=== PATIENT | male | born 1960 | race Caucasian/White ===

== ENCOUNTER → 2016-05-19 | Outpatient (CLI) | payer OTHER ==
[~2016-05-19] MED LIST: ATOR10TA82 PO; B-CO-25 PO; BACL10TA PO; DULO60CA44 PO; ECHICAP PO; GABA1CAP4 PO; HYDR-5688 PO; IBUP1CAP9 PO; MULT-506 PO; NAPR-1169 PO; NRN600 PO; TIZA4CAP PO; TRAZ50TA35 PO
[2016-05-19 17:09] LABS: BASO % 0.5 %; BASO ABS # 0.04 K/uL (0-0.2); COMPLETE YES; EOS % 3.5 %; HEMATOCRIT 42.3 % (42-52); IG% 0.2 %; LYMPH % 31.8 %; LYMPH ABS # 2.75 K/uL (1.2-3.4); MEAN CELL VOLUME 90.4 fL (80-100); MEAN CORPUSCULAR HEMOGLOBIN 32.1 pg (25-34); MEAN CORPUSCULAR HGB CONC 35.5 g/dl (32-36); MEAN PLATELET VOLUME 9.5 fL (7.4-10.4); MONO % 6.4 %; NEUT % 57.6 %; PLATELET COUNT 340 K/uL (130-400); RED BLOOD COUNT 4.68 M/uL (4.7-6.1); WHITE BLOOD COUNT 8.64 K/uL (4.8-10.8)
[2016-05-19 17:36] LABS: BENZODIAZEPINE, URINE NEG (NEG); COCAINE,URINE NEG (NEG); PHENCYCLIDINE, URINE NEG (NEG)
[2016-05-19 17:37] LABS: ALKALINE PHOSPHATASE 137 U/L (45-117); ALT/SGPT 29 U/L (12-78); BLOOD UREA NITROGEN 12 mg/dl (7-18); BUN/CREATININE RATIO 12.1 (10-20); CALCIUM 8.5 mg/dl (8.5-10.1); CARBON DIOXIDE 29 mmol/L (21-32); CHLORIDE 103 mmol/L (98-107); CHOLESTEROL 235 mg/dl (0-200); CHOLESTEROL/HDL RATIO 4.2; GLUCOSE 103 mg/dl (70-99); HDL CHOLESTEROL 56 mg/dl; POTASSIUM 4.1 mmol/L (3.5-5.1); SODIUM 137 mmol/L (136-145); TRIGLYCERIDES 496 mg/dl (0-150)
[2016-05-19 17:45] LABS: AST/SGOT 21 U/L (15-37)
[2016-05-20 06:33] LABS: ESTIMATED AVERAGE GLUCOSE 126 mg/dl; HA1C FLAG Normal (Normal)
[2016-05-23 05:28] LABS: COD UR NEGATIVE NG/ML (CUTOFF=50); HYDROCOD UR 1760 NG/ML (CUTOFF=50); HYDROMOR UR 117 NG/ML (CUTOFF=50); MORPHINE UR NEGATIVE NG/ML (CUTOFF=50); NORHYDROCODONE CONF UR 1930 NG/ML (CUTOFF=50); OXYMORPH UR NEGATIVE NG/ML (CUTOFF=50)
--- NOTE | 2016-05-25 13:41 | CODING QUERY MEDICAL NECESSITY ---
CQSUPPORTING DIAGNOSIS NEEDED A supporting diagnosis is required for the test/procedure performed on this patient in order for us to be reimbursed by the patient's insurance. Please provide a supporting diagnosis for the following test/procedure listed below next to the test name along with your signature. *If there is no additional diagnosis for this patient that would support the following test/procedure please document that below next to the test/procedure. Test(s)/Procedure(s) that require a supporting diagnosis: DOS 05/19/16 GLYCATED HEMOGLOBIN CONTROLLED SUBSTANCE Provider Signature: Date: Thank you Jazzy Ponce Health Information Management Once completed, please kindly fax back to [phone] For questions please call [phone]
== END | disposition home or self-care (01) ==
LOC: C.LAB 16:28
PROVIDERS: ATTEND Family Medicine
DX: R73.03 Prediabetes (principal); Z51.81 Encounter for therapeutic drug level monitoring

== ENCOUNTER → 2016-06-26 | Outpatient (CLI) | payer OTHER ==
[2016-06-26 09:54] LABS: CHOLESTEROL/HDL RATIO 4.8
== END | disposition home or self-care (01) ==
LOC: C.LAB 09:02
PROVIDERS: ATTEND Nurse Practitioner Adult Health
DX: E78.1 Pure hyperglyceridemia (principal)

== ENCOUNTER → 2016-08-17 | Outpatient (CLI) | payer OTHER ==
[~2016-08-17] MED LIST changes: -ATOR10TA82 PO; +ATOR10TA88 PO
[2016-08-17 11:15] LABS: CHOLESTEROL/HDL RATIO 3.3
== END | disposition home or self-care (01) ==
LOC: C.LAB 09:40
PROVIDERS: ATTEND Nurse Practitioner Adult Health
DX: E78.5 Hyperlipidemia, unspecified (principal)

== ENCOUNTER 2016-09-17 22:59 | Emergency (ER) | payer OTHER ==
[~2016-09-17] VITALS: Ht 172.7 cm; Wt 77.4 kg
[~2016-09-17 22:59] MED LIST changes: -ATOR10TA88 PO; -TIZA4CAP PO; -TRAZ50TA35 PO
[2016-09-17 23:11] VITALS: TEMP 36.8; Ht 172.7 cm; Wt 77.4 kg
[2016-09-17] MEDS ORDERED: ACETAMINOPHEN 500 MG TAB PO STA (23:27)
[2016-09-17] MEDS ORDERED: TRAZ50TA35 PO (23:54)
[2016-09-17] MEDS ORDERED: TIZA4CAP PO (23:54)
[2016-09-17] MEDS ORDERED: ATOR10TA88 PO (23:56)
--- NOTE | 2016-09-18 03:54 | EMERGENCY ROOM VISIT NOTE ---
History First contact with patient: 23:25 Chief Complaint: HEAD INJURY (MINOR) Stated Complaint: IMPACT TO HEAD,ALMOST PASSED OUT,LIGHTHEADED History of Present Illness The patient is a 55 year old male who presents to the Emergency Room with complaints of headache, lightheadedness and dizziness with nausea after accident hitting his head on the cabinet a few hours ago. Current headache 5 out of 10. Patient denies loss of consciousness, vision problems, facial pain, cough, congestion, fever, chills, sinus pain or congestion, neck pain, back pain , chest pain, dyspnea, abdominal pain, weakness, localized weakness, balance problems. No alcohol or drugs today. Tetanus is current. Review of Systems See HPI for pertinent positives & negatives. A total of 10 systems reviewed and were otherwise negative. Past Medical/Surgical History Medical Problems: (1) Diverticulosis Colon (W/O Ment Of Hemorrhage) (2) Personal History Of Urinary Calculi (3) Unsp Gastritis & Gastroduodenitis W/O Mentn Hemorg Social History Problems: (1) Tobacco Use Disorder Social History Smoking Status: Current Every Day Smoker Alcohol Use: none Drug Use: none Marital Status: in relationship Occupation Status: employed Current/Historical Medications Scheduled Atorvastatin (Lipitor), 1 TAB PO HS Duloxetine Hcl (Cymbalta), 60 MG PO QAM Gabapentin (Gabapentin), 600 MG PO QID Tizanidine (Zanaflex), 4 MG PO TID Trazodone Hcl (Trazodone), 50 MG PO HS Scheduled PRN Ibuprofen (Ibuprofen), 600 MG PO Q6 PRN for Pain Naproxen (Naprosyn), 500 MG PO BID PRN for Pain Physical Exam Vital Signs Date Time Temp Pulse Resp B/P (MAP) Pulse Ox O2 Delivery O2 Flow Rate FiO2 09/18/16 02:14 66 18 151/83 96 Room Air 09/17/16 23:11 36.8 94 18 128/87 95 Room Air 09/17/16 23:11 18 95 Physical Exam VITALS: Vitals are noted on the nurse's note and reviewed by myself. Vital signs stable. GENERAL: Pleasant male, in no acute distress, nondiaphoretic, well-developed well-nourished. SKIN: Superficial abrasion to the top of the scalp The rest of the skin was without rashes, erythema, edema, or bruising. There is no tenting of the skin. Capillary reflex less than 2 seconds. HEAD: Normocephalic atraumatic. EARS: External auditory canals clear, tympanic membranes pearly pope without erythema or effusion bilaterally. EYES: Pupils equal round and reactive to light and accommodation. Conjunctivae without injection, sclerae without icterus. Extraocular movements intact. NOSE: Patent, turbinates without inflammation or discharge. No sinus tenderness. MOUTH: Mucous membranes moist. Pharynx without erythema or exudate. Uvula midline. Airway patent. Tongue does not deviate. NECK: Supple without nuchal rigidity. No lymphadenopathy. No thyromegaly. Cervical spine is nontender. No JVD. HEART: Regular rate and rhythm without murmurs gallops or rubs. LUNGS: Clear to auscultation bilaterally without wheezes, rales or rhonchi. No dullness to percussion. No retractions or accessory muscle use. ABDOMEN: Positive bowel sounds x 4. Normal tympanic percussion. Soft, nontender, without masses or organomegaly. More sign negative. No guarding or rebound tenderness. MUSCULOSKELETAL: No muscle atrophy, erythema, or edema noted. NEURO: Patient was alert and oriented to person place and time. Normal sensation to light and sharp touch. No focal neurological deficits. Cranial nerves II-12 grossly intact. No prior drift. Cerebellar exam intact. Medical Decision & Procedures Medications Administered Medications (Trade) Dose Ordered Sig/Cele Route Start Time Stop Time Status Last Admin Dose Admin Acetaminophen (Tylenol Tab) 1,000 mg NOW STAT PO 09/17/16 23:27 09/17/16 23:29 DC 09/18/16 00:09 1,000 MG ED Course Prior records/ancillary studies reviewed. Triage Nursing notes reviewed. The patient's history was concerning for traumatic head injury Differential diagnosis: Etiologies such as concussion, contusion, fracture, subdural hematoma, epidural hematoma, intraparenchymal hemorrhage, as well as other traumatic pathologies were entertained. Physical examination findings: As above. ER treatment provided: P.o. Tylenol On reassessment the patient felt better. Diagnostics interpreted by me: Imaging studies: Head CT negative for intracranial bleed. Sinus CT concerning for sinus retention cyst versus polyps with mucosal thickening per stat radiology Patient has no sinus symptoms. He was advised follow-up with ENT for this. It appears the patient has a head injury. Incidental findings on the sinuses on head CT So sinus CT was ordered. Patient had no sinus symptoms on exam. He is advised follow-up ENT for the sinus issues and family care in a few days. Patient was counseled on head injury signs and symptoms and verbalized understanding of this. He is advised if symptoms persist to follow-up with the concussion clinic here in town or here in the ER sooner for headache, fevers, vomiting, lethargy, worsening signs or symptoms or as needed. She was neurovascularly and neurologically intact. He was well-appearing. He was ambulating without difficulties. He was discharged home in stable condition. By the evaluation outlined above emergent etiologies such as fracture, subdural hematoma, epidural hematoma, intraparenchymal hemorrhage, as well as others were deemed relatively unlikely. The pt informed about the findings as listed above. All questions were answered and pleased with the treatment. Return instructions were outlined and the patient was discharged in stable condition. Case reviewed with my attending Referral: The patient was referred back to their primary care physician and ENT for follow -up in 2 to 3 days for a recheck of the current condition. Medical Decision As above Medication Reconcilliation Current Medication List: was personally reviewed by me Blood Pressure Screening Patient's blood pressure: Elevated blood pressure Blood pressure disposition: Elevated BP felt to be situational Impression Primary Impression: Closed head injury Additional Impression: Scalp abrasion Departure Information Dispostion Home / Self-Care Condition GOOD Referrals Sussy Ryder C.R.N.PIrene (PCP) Miah Shannon MD Forms HOME CARE DOCUMENTATION FORM, IMPORTANT VISIT INFORMATION Patient Instructions [facility], ED Head Injury Closed Additional Instructions Read head injury handout and return for any symptoms. Tylenol 1000 mg as needed for pain (Maximum 3000 mg Tylenol in 24 hr period). Avoid alcohol and contact sports/activities for one week and follow up with family doctor prior to returning to these activities if still symptomatic. Ice and elevate head. If your symptoms persist more than a week then follow up with the concussion clinic. Call [phone]. Return to ER sooner for headache, fevers, confusion, worsening signs or symptoms or as needed. Follow-up ENT within the week for your sinus problems seen on CT. Problem Qualifiers Primary Impression: Closed head injury Encounter type: initial encounter Qualified Codes: S09.90XA - Unspecified injury of head, initial encounter
[2016-09-18 04:10] VITALS: BP 145/95; PULSE 65; O2SAT 98
--- NOTE | 2016-09-18 06:39 | DIAGNOSTIC IMAGING REPORT ---
HEAD CT NONCONTRAST CT DOSE: 614.27 mGy.cm HISTORY: head injury TECHNIQUE: Multiaxial CT images of the head were performed without the use of intravenous contrast. Automated exposure control was utilized for this study. A dose lowering technique was utilized adhering to the principles of ALARA. Comparison: None. Findings: Retention cyst within the right maxillary sinus. Mucosal thickening and a small fluid within the left maxillary sinus. The mastoid air cells are clear. The calvarium and skull base are intact. The ventricles and sulci are within normal limits. There is no mass, hematoma, midline shift, or acute infarct. Impression: No acute intracranial abnormality. Sinus disease as described above. Electronically signed by: Gustavo Dye M.D. 09/18/2016 6:38 AM Dictated Date/Time: 09/18/2016 6:36 AM
--- NOTE | 2016-09-18 06:42 | DIAGNOSTIC IMAGING REPORT ---
SINUS CT CT DOSE: 497.91 mGy.cm HISTORY: Abnormal head CT. Facial pain. TECHNIQUE: Multiaxial CT images of the paranasal sinuses were performed and reformatted in the coronal plane without the use of contrast. A dose lowering technique was utilized adhering to the principles of ALARA. COMPARISON: Head CT 09/18/2016. FINDINGS: A 2.3 cm retention cyst within the right maxillary sinus. Mucosal thickening and a small fluid level within the left maxillary sinus. A few opacified right mastoid air cells. The left mastoid air cells are clear. Opacification of the bilateral ethmoid infundibula. Mild right nasal septal deviation. The orbits are unremarkable. IMPRESSION: Acute on chronic sinusitis within the left maxillary sinus with a retention cyst within the right maxillary sinus. Electronically signed by: Gustavo Dye M.D. 09/18/2016 6:41 AM Dictated Date/Time: 09/18/2016 6:38 AM
== END 2016-09-18 04:11 | disposition home or self-care (01) ==
LOC: C.EDB 23:01 → C.EDA 09-18 04:11
DX: S00.01XA Abrasion of scalp, initial encounter (principal); W22.8XXA Striking against or struck by other objects, initial encounter; Z87.442 Personal history of urinary calculi; K29.70 Gastritis, unspecified, without bleeding; K29.90 Gastroduodenitis, unspecified, without bleeding; K57.30 Diverticulosis of large intestine without perforation or abscess without bleeding; F17.210 Nicotine dependence, cigarettes, uncomplicated; Z79.899 Other long term (current) drug therapy

== ENCOUNTER → 2017-06-27 | Outpatient (CLI) | payer OTHER ==
[~2017-06-27] MED LIST changes: +ATOR10TA82 PO; -B-CO-25 PO; -BACL10TA PO; -ECHICAP PO; -GABA1CAP4 PO; -HYDR-5688 PO; -MULT-506 PO; +TIZA4CAP PO; +TRAZ50TA35 PO
--- NOTE | 2017-06-27 17:10 | DIAGNOSTIC IMAGING REPORT ---
HEAD WITHOUT CONTRAST (CT) CLINICAL HISTORY: 56 years-old Male with FLUCTUATING MENTATION STATUS. Acutely altered mental status TECHNIQUE: Multiple axial CT images of the head were obtained without contrast. A dose lowering technique was utilized adhering to the principles of ALARA. CT DOSE: 614.27 mGy.cm COMPARISON: CT head 09/18/2016. FINDINGS: No acute intracranial hemorrhage, midline shift, hydrocephalus or abnormal extra-axial collections. There is a large area of low-attenuation involving the right parietal and occipital lobes measuring up to 3.5 cm with blurring of the pope-white interface and minimal adjacent sulcal effacement. Note is made of a magna cisterna magna. The calvarium is intact. Moderate polypoid mucosal thickening about the right maxillary sinus. Soft tissues and orbits are unremarkable. IMPRESSION: Focal area of low-attenuation involving the right parietal and occipital lobes with blurring of the pope-white interface and mild sulcal effacement suggest acute or subacute infarction with cytotoxic edema. No hemorrhage or midline shift. This could be further evaluated with MRI. The above report was generated using voice recognition software. It may contain grammatical, syntax or spelling errors. Electronically signed by: Souleymane Lopez M.D. 06/27/2017 5:09 PM Dictated Date/Time: 06/27/2017 5:03 PM
== END | disposition home or self-care (01) ==
LOC: C.CTS 16:43
PROVIDERS: ATTEND Registered Nurse
DX: R41.82 Altered mental status, unspecified (principal); Z87.820 Personal history of traumatic brain injury

== ENCOUNTER 2024-02-22 14:21 | Inpatient (IN) ==
[2024-02-22] MEDS: cefTRIAXone SODIUM 2,000 MG/50 ML BAG IV STA (16:40)
[2024-02-22] MEDS: metroNIDAZOLE 500 MG/100 ML BAG IV STA (16:40)
[2024-02-22 17:23] LABS: INR 1.1 (0.9-1.1); Partial Thromboplastin Time 27 Seconds (21-31); Prothrombin Time 11.9 Seconds (9.0-12.0)
[2024-02-22 17:28] LABS: Alanine Aminotransferase 61 U/L (7-52); Albumin Level 2.8 gm/dl (3.4-5.0); Alkaline Phosphatase 359 U/L (34-104); Anion Gap 13 (3-11); Aspartate Aminotransferase 43 U/L (13-39); BUN Creatinine Ratio 22.1 (10-20); Bilirubin Direct 0.2 mg/dl (0-0.2); Bilirubin,Total 0.4 mg/dl (0.2-1.0); Blood Urea Nitrogen 30 mg/dl (6-23); Calcium 10.4 mg/dl (8.6-10.3); Carbon Dioxide 28 mmol/L (21-32); Chloride 86 mmol/L (98-107); Glucose 514 mg/dl (70-99(Fasting)); Magnesium 1.8 mg/dl (1.7-2.4); Potassium 3.6 mmol/L (3.5-5.1); Sodium 127 mmol/L (136-145); Troponin I High Sensitivity 16.5 pg/ml (0-20)
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
[2024-02-22 17:33] LABS: Basophils # (auto) 0.06 K/uL (0.00-0.20); Basophils % (auto) 0.2 %; Eosinophils # (auto) 0.02 K/uL (0.00-0.50); Eosinophils % (auto) 0.1 %; Hemoglobin 12.1 g/dl (14.0-18.0); Immature Granulocytes % (auto) 1.3 %; Lymphocytes # (auto) 1.31 K/uL (1.20-3.40); Lymphocytes % (auto) 4.2 %; Mean Corpuscular Hemoglobin 26.4 pg (25.0-34.0); Mean Corpuscular Hgb Conc 32.7 g/dL (32.0-36.0); Mean Corpuscular Volume 80.8 fL (80.0-100.0); Mean Platelet Volume 8.7 fL (9.4-12.4); Monocytes # (auto) 1.03 K/uL (0.11-0.59); Monocytes % (auto) 3.3 %; Neutrophils # (auto) 28.63 K/uL (1.40-6.50); Neutrophils % (auto) 90.9 %; Platelet Count 692 K/uL (130-400); RDW Coefficient of Variation 18.6 % (11.5-14.5); RDW Standard Deviation 54.5 fL (36.4-46.3); Red Blood Count 4.58 M/uL (4.70-6.10); White Blood Count 31.45 K/ul (4.8-10.8)
[2024-02-22] MEDS: LIDOCAINE 5% 1 PATCH TD SCH ×2 (17:46→21:16)
[2024-02-22] MEDS: SODIUM CHLORIDE 0.9% 1,000 ML IV SCH (17:47)
--- NOTE | 2024-02-22 18:04 | XRay Report ---
Clinical History: Sepsis Technique: 3 frontal views of the chest were obtained Findings: There is extensive alveolar consolidation in the right mid and lower lung. There is a suspected small moderate right pleural effusion. The heart size is within normal limits. No left pleural effusion or pneumothorax is seen. There is a calcified left upper lobe nodule, likely a benign granuloma. There is right paratracheal prominence There are old healed left third fractures. There is a cervical fusion Impression: 1. Extensive right lung pneumonia 2. Right pleural effusion 3. Right paratracheal prominence that could be due to adenopathy but is indeterminate in nature. A follow-up contrast-enhanced chest CT may be prudent Electronically signed by Hossein Tinajero 02-22-2024 6:04 PM
--- NOTE | 2024-02-22 18:05 | Pulmonary Consultation ---
Date of Consultation February 22, 2024 Assessment & Plan (1) Empyema, right: 14 Hungarian pigtail catheter placed on the right. Brown-colored fluid removed from the right pleural space and chest tube attached to 20 cm of water continuous suction. Patient will be transferred to [place] for further thoracic intervention such as VATS. Will hold on mist 2 protocol given the anticipation of patient needing VATS in the very near future for source control. Discussed the case personally with Dr. Olvera of thoracic surgery who is excepting the patient under the hospitalist service in [place]. Hold on anticoagulation and maintain n.p.o. status. (2) Lactic acidosis: Secondary to sepsis from extensive right-sided pneumonia and empyema. (3) Sepsis: Sepsis from pneumonia and empyema. Recommend changing antibiotics to vancomycin and Zosyn. (4) COPD exacerbation: Will hold on prednisone as his symptoms are mild, but start the patient on bronchodilators and ICS nebulizer. Plan Discussed care with thoracic surgeon in [place], overnight ICU [facility], bedside nurse in the ER, ER physician and hospitalist at bedside. History of Present Illness Reason for Consultation: Empyema History of Present Illness 63-year-old male with extensive smoking history since the age of 16 who presented to the ER due to the recommendation of radiology. He had a low-dose CT chest for screening follow-up which revealed an extensive right-sided empyema and right upper lobe infiltrate. Patient notes he has had ongoing pleurisy and cough for several weeks. He has mild dyspnea at baseline. He does not use any inhalers and has not seen pulmonary medicine as an outpatient. Labs are concerning for a white count of 31,000. Chest x-ray in the ER revealed extensive right-sided infiltrate and pleural effusion. Patient received Rocephin and azithromycin in the ER. Allergies Allergy/AdvReac Type Severity Reaction Status Date / Time amoxicillin [From Augmentin] Allergy Intermediate Hives Verified 01/10/23 09:26 clavulanic acid Allergy Intermediate Hives Verified 01/10/23 09:26 [From Augmentin] Home Medications Medication Instructions Recorded Confirmed Type ascorbic acid (vitamin C) 500 mg 500 mg PO QAM 06/18/20 02/22/24 History tablet (Vitamin C) atorvastatin 20 mg tablet 20 mg PO QPM 06/18/20 02/22/24 History baclofen 20 mg tablet 20 mg PO HS PRN Muscle Spasm 06/18/20 02/22/24 History makfdiuyxxib-jwteligm-wkliql tablet 1 tab PO QAM 06/18/20 02/22/24 History topiramate 50 mg tablet 50 mg PO UD 02/22/24 02/22/24 History Patient History Medical History Osteoarthritis Anemia Poor historian Surgical History Bilateral varicoceles REPAIRED [place] teeth removed History of tonsillectomy H/O eye surgery REPAIR FROM DOG BITE H/O blepharoplasty "EYELID SURGERY" Family History Mother Family history of diabetes mellitus Father Family history of diabetes mellitus Sister Family hx of colon cancer Other No family history of adverse response to anesthesia Social History Smoking Status: Current every day smoker Tobacco Type: Cigarettes Second Hand Exposure: No; Do You Dip or Chew Tobacco: No; Hx Alcohol Use: No Preferred Language: [employer] Required: No Current Living Situation: Alone Feels Safe at Home: Yes Assistive Devices: Glasses Review of Systems Review of Systems: All systems reviewed & are unremarkable except as noted in HPI & below Physical Exam Physical Exam: Constitutional: Patient appears to be of their stated age. Patient is in no apparent distress. Thin appearing male. Eyes: Pupils are equal round and reactive to light. Conjunctivae are normal. Anicteric sclera. Ears nose, mouth and throat: Mallampati class 1. Normal posterior oropharynx. Uvula is midline. Extremely poor dentition with multiple loose teeth. Neck: Trachea is midline. Visual inspection is normal. Respiratory: Right pleural rub with diminishment on the right and crackles. Diffuse wheezing. Cardiovascular: Regular rate and rhythm. No murmurs. No edema. Gastrointestinal: Normal bowel sounds, soft, nontender and nondistended. No hepatosplenomegaly noted. Musculoskeletal: No cyanosis. Patient is able to move all extremities. Strength is 5 out of 5 in the upper and lower extremities. Skin: No rashes, warm dry and intact. Neurologic: No obvious focal neurological deficits seen. Psychiatric: Alert and oriented x3 with a euthymic affect. Results & Data Results & Data Vital Signs (Past 12 Hours) Vital Signs Temp Pulse Pulse Resp BP BP Pulse Ox 02/22/24 17:04 83 20 130/75 96 02/22/24 16:37 89 20 136/80 97 02/22/24 16:35 92 H 20 96 02/22/24 16:35 90 20 136/80 96 02/22/24 14:25 36.3 C L 109 H 20 115/63 93 O2 Del Method 02/22/24 17:04 Room Air 02/22/24 16:37 Room Air 02/22/24 16:35 Room Air 02/22/24 16:35 Room Air 02/22/24 14:25 Room Air PG Care Time/CCT Total # of Minutes Spent Total Time Spent with Patient: Total time spent is greater than 50% in coordination of care (as documented) at patient's floor/unit and/or counseling patient: Coding Level of Care Code 76524 INT INP/OBS CARE 3/75MIN Diagnoses Empyema, right J86.9 Lactic acidosis E87.20 Sepsis A41.9 COPD exacerbation J44.1
[2024-02-22] MEDS ORDERED: VANCOMYCIN CONSULT ACTIVE PRN (18:24)
[2024-02-22] MEDS: NovoLIN-R INSULIN PER UNIT CHARGE SC STA ×2 (18:34→21:17)
[2024-02-22] MEDS ORDERED: VANCOMYCIN HCL 1,250 MG in SODIUM CHLORIDE 0.9% 250 ML IV ONE (18:45)
[2024-02-22] MEDS: HYDROmorphone INJ 0.5 MG/0.5 ML SYR IV STA (18:53)
[2024-02-22] MEDS: VANCOMYCIN HCL 1,500 MG in SODIUM CHLORIDE 0.9% 500 ML IV ONE (19:47)
[2024-02-22] MEDS: ACETAMINOPHEN 1,000 MG/100 ML VIAL IV STA (19:48)
--- NOTE | 2024-02-22 19:55 | Procedure Note ---
Procedure Note Date of Service February 22, 2024 PIGTAIL CATHETER PLACEMENT NOTE: Procedure: Pigtail Catheter Chest Tube Placement Indication: Right empyema Anesthesia: 8ml Lidocaine 1% Written consent was obtained and placed on the chart. Timeout was done prior to the procedure. Prior to procedure, chest x-ray films were reviewed by myself and demonstrated a large loculated right pleural effusion. A time-out was completed verifying correct patient, procedure, site, positioning, and implant(s) or special equipment if applicable. Utilizing bedside ultrasound, chest wall was evaluated for location for optimal chest tube placement. Location between the fifth and sixth ribs were marked on the skin using gentle pressure. The right sided chest wall was prepped with chlorhexidine and draped in the typical sterile fashion. 15 mL of 1% Lidocaine without epinephrine was used to anesthetize the skin down to the dorsal surface of the fifth rib. Brown colored fluid return confirmed entry into the pleural space. Lidocaine was injected into the pleural space for increased anesthetization. Introducer needle on syringe was inserted in perpendicular fashion taking care to ride just above the dorsal surface of the fifth rib. Entry into the pleural space was heralded by brown-colored fluid return into the syringe while under gentle aspiration. Guide wire was advanced into the pleural space without resistance and the introducer needle was subsequently removed. Scalpel was used to make small incision of the superficial tissue, parallel to the direction of the rib anatomy. Dilator was advanced uneventfully over the guide wire into the pleural space. 14 Sinhala Pigtail Catheter was inserted into the pleural space. Inner introducer and guide wire were removed. Drain was immediately connected to pre-prepared MANJU pleur-evac system. Pigtail was sutured securely in place and sterile dressing was applied. Chest tube was placed to -20 cmH2O suction. Patient tolerated procedure well. Blood Loss: Minimal Complications: None Post procedure Chest X-ray was ordered and reviewed by myself which demo nstrated adequate placement. [facility] [place] Procedure Codes (Charges) Pulmonary/Thoracic Procedure 1: Pulmonary and Thoracic: 19729 Tube thoracostomy Procedure 2: Pulmonary and Thoracic: 02439 US, Chest, real time with imaging documentation Coding CPT Codes Pulmonary/Thoracic - Pulmonary and Thoracic: 58877 Tube thoracostomy ([id number]) Pulmonary/Thoracic - Pulmonary and Thoracic: 68266 US, Chest, real time with imaging documentation ([id number]) Additional Codes Date of Service ([facility].SURGERY)
--- NOTE | 2024-02-22 20:43 | XRay Report ---
Exam(s): XR CXR 1 VIEW EXAM: XR Chest, 1 View CLINICAL HISTORY: Reason for exam: eval placement of pigtail catheter- r/o pthx. TECHNIQUE: Frontal view of the chest. COMPARISON: 02/22/2024. IMPRESSION: Right-sided pleural pigtail in place. No visible pneumothorax. Pleural thickening versus small right pleural effusion. Airspace opacities in the right lung. Electronically signed by: Jona Dailey MD 02/22/24 20:42 PM
[2024-02-22] MEDS: MEROPENEM 500 MG in SYRINGE 0 ML IV ONE (21:17)
--- NOTE | 2024-02-22 23:02 | Emergency Department Note ---
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 TABLET IN THE EVENING WITH A FULL GLASS OF WATER Referrals Referrals: Wero Vega MD [Primary Care Provider] -
[2024-02-22 23:33] LABS: Appearance Pleural Fluid Turbid; Color Pleural Fluid Brown; RBC Pleural Fluid Auto 270000 /uL; Source Pleural Fluid Right Lung; WBC Pleural Fluid Auto 419830 /uL
[2024-02-23] MEDS ORDERED: DEXTROSE 50% 50 ML SYRINGE IV PRN (00:04)
[2024-02-23] MEDS ORDERED: CARBOHYDRATES FOR HYPOGLYCEMIA PO PRN (00:04)
[2024-02-23] MEDS ORDERED: ACETAMINOPHEN 325 MG TAB PO PRN (00:04)
[2024-02-23] MEDS ORDERED: MELATONIN 3 MG TAB PO PRN (00:04)
[2024-02-23] MEDS ORDERED: GLUCOSE 40% GEL 15 GM TUBE PO PRN (00:04)
[2024-02-23] MEDS ORDERED: POLYETHYLENE (MIRALAX) 17 GM PACK PO PRN (00:04)
[2024-02-23] MEDS ORDERED: GLUCAGON FOR INJ 1 MG VIAL SQ PRN (00:04)
[2024-02-23] MEDS ORDERED: ONDANSETRON INJ 2 MG/ML 2 ML VIAL IV PRN (00:04)
[2024-02-23] MEDS ORDERED: BACLOFEN 20 MG TAB PO PRN (00:04)
[2024-02-23] MEDS ORDERED: FAMOTIDINE 20 MG TAB PO PRN (00:04)
[2024-02-23] MEDS ORDERED: PHARMACY GLYCEMIC MGMT CONSULT PRN (00:04)
[2024-02-23] MEDS ORDERED: GLUCOSE 10 TAB/TUBE PO PRN (00:04)
[2024-02-23] MEDS ORDERED: ALBUT/IPRATROP 3MG/0.5MG NEB 3 ML VIAL NEB PRN (00:21)
[2024-02-23] MEDS: oxyCODONE HCL IR 5 MG TAB (IMMEDIATE RELEASE) PO PRN (00:40)
[2024-02-23] MEDS: SODIUM CHLORIDE 0.9% 1,000 ML IV SCH ×2 (00:44→13:43)
[2024-02-23] MEDS: LANTUS PER UNIT CHARGE SQ SCH (00:59)
[2024-02-23] MEDS: INSULIN ASPART PER UNIT CHARGE SC SCH (01:00)
[2024-02-23] MEDS: MEROPENEM 500 MG in SYRINGE 0 ML IV SCH (04:35)
[2024-02-23 07:14] LABS: Estimated Average Glucose 197 mg/dl; Hemoglobin A1C 8.5 % (4.5-5.6)
[2024-02-23] MEDS: FORMOTEROL 20 MCG/2 ML VIAL NEB SCH (07:18)
[2024-02-23] MEDS: BUDESONIDE 0.25 MG/2 ML VIAL (PULMICORT) NEB SCH (07:18)
--- NOTE | 2024-02-23 08:20 | XRay Report ---
EXAM: XR chest 1V portable CLINICAL HISTORY: EMPYEMA LDS. TECHNIQUE: An X-ray image of the chest was obtained in AP projection. COMPARISON: Prior X-ray study dated 02/22/2024. FINDINGS: Pulmonary Parenchyma: Inserted right chest tube is seen. Mild regression in right middle lung zone opacity with surrounding diffuse ground glass opacity and alveolar densities seen with obscured right costophrenic angle. Right paratracheal radio-opacity is seen as well. Left upper lobe calcified granuloma. No evidence of left consolidation, collapse, or focal opacities. No evidence of left pleural effusion or pleural thickening. Heart and Mediastinum: Heart size and shape are normal. No mediastinal widening or masses. No hilar or mediastinal lymphadenopathy. Bony Thorax: Bony thorax appears intact without fractures or deformities. Soft Tissues: Soft tissues overlying the chest wall are unremarkable. IMPRESSION: 1. Inserted right chest tube is seen (new). 2. Mild regression in right middle lung zone opacity with surrounding diffuse ground glass opacities seen as well as mild right pleural effusion. 3. Right paratracheal radio-opacity is seen as well (stable). 4. Left upper lobe calcified granuloma (stable). Electronically signed by Memo Alegre 02-23-2024 08:20 AM
[2024-02-23 08:22] LABS: BUN Creatinine Ratio 21.7 (10-20); Calcium 9.6 mg/dl (8.6-10.3); Creatinine Clr Calc Pharmacy 56.7 ml/min; Potassium 3.9 mmol/L (3.5-5.1)
[2024-02-23 08:34] LABS: Hematocrit (blood only) 31.8 % (42.0-52.0); Hemoglobin 10.3 g/dl (14.0-18.0); Mean Corpuscular Hemoglobin 26.5 pg (25.0-34.0); Mean Corpuscular Hgb Conc 32.4 g/dL (32.0-36.0); Mean Corpuscular Volume 81.7 fL (80.0-100.0); Mean Platelet Volume 8.4 fL (9.4-12.4); Platelet Count 560 K/uL (130-400); RDW Coefficient of Variation 18.6 % (11.5-14.5); RDW Standard Deviation 55.7 fL (36.4-46.3); Red Blood Count 3.89 M/uL (4.70-6.10)
[2024-02-23 08:38] LABS: Basophils # (auto) 0.13 K/uL (0.00-0.20); Basophils % (auto) 0.3 %; Echinocytes 1+; Eosinophils # (auto) 0.05 K/uL (0.00-0.50); Eosinophils % (auto) 0.1 %; Immature Granulocytes # (auto) 0.48 K/uL (0.01-0.20); Immature Granulocytes % (auto) 1.3 %; Lymphocytes # (auto) 1.07 K/uL (1.20-3.40); Lymphocytes % (auto) 2.8 %; Monocytes # (auto) 0.63 K/uL (0.11-0.59); Monocytes % (auto) 1.6 %; Neutrophils # (auto) 35.94 K/uL (1.40-6.50); Neutrophils % (auto) 93.9 %; Polychromasia 1+
[2024-02-23] MEDS: ADVANCED PROBIOTIC 625 MG CAPSULE PO SCH (09:12)
[2024-02-23] MEDS: ASCORBIC ACID 500 MG TAB PO SCH (09:12)
[2024-02-23] MEDS: TOPIRAMATE 50 MG TAB PO SCH (09:12)
[2024-02-23] MEDS: CEROVITE ADV FORMULA TAB PO SCH (09:12)
--- NOTE | 2024-02-23 11:06 | Pulmonology Progress Note ---
Date of Service February 23, 2024 Assessment & Plan (1) Empyema, right: Plan: 14 Vietnamese pigtail catheter placed on the right. Brown-colored fluid removed from the right pleural space and chest tube attached to 20 cm of water continuous suction. Patient will be transferred to [place] for further thoracic intervention such as VATS. Will hold on mist 2 protocol given the anticipation of patient needing VATS in the very near future for source control. Discussed the case personally with Dr. Olvera of thoracic surgery who is excepting the patient under the hospitalist service in [place]. Hold on anticoagulation and maintain n.p.o. status. (2) Lactic acidosis: Plan: Secondary to sepsis from extensive right-sided pneumonia and empyema. (3) Sepsis: Plan: Sepsis from pneumonia and empyema. Recommend changing antibiotics to vancomycin and Zosyn. (4) COPD exacerbation: Plan: Will hold on prednisone as his symptoms are mild, but start the patient on bronchodilators and ICS nebulizer. Plan Discussed care with thoracic surgeon in [place], overnight ICU [facility], bedside nurse in the ER, ER physician and hospitalist at bedside. Admission and Anticipated Discharge Date Admission Date: February 22, 2024 Review of Systems Review of Systems: A complete 10 point review of systems was reviewed with the patient with pertinent positives and negatives as per history of present illness. All else were negative. Physical Exam Physical Exam: VITAL SIGNS Vital signs and nursing notes were reviewed. GENERAL []-year-old [] appearing [] stated age who is in no acute distress. Communicates well with provider and answers questions appropriately. SKIN Without rashes or lesions. NOSE Midline and without cyanosis. No epistaxis or purulent drainage noted. MOUTH/OROPHARYNX Without perioral cyanosis. Buccal mucosa pink and moist and without leukoplakia or thrush. NECK Neck with FROM. Supple to palpation. [] lymphadenopathy noted. LUNGS Chest wall evaluation demonstrates [] chest wall A:P diameter. Auscultation reveals []. CARDIAC RRR with S1/S2. No murmur, rubs, or gallops appreciated. ABDOMEN Abdominal inspection demonstrates []. BS normoactive all four quadrants. No tenderness, palpable masses, or ascites noted. EXTREMITIES Nail clubbing [] present. [] peripheral cyanosis. [] pretibial edema present. +3/5 radial palpated throughout. PSYCH A&Ox3 and cooperates fully with examiner. Pt is very pleasant and interacts well with examiner. Results & Data Results & Data Vital Signs (Past 12 Hours) Vital Signs Temp Pulse Pulse Resp BP BP Pulse Ox 02/23/24 10:54 36.2 C L 80 18 115/70 90 02/23/24 08:09 36.2 C L 90 18 102/58 L 93 02/23/24 07:23 02/23/24 07:19 88 16 95 02/23/24 03:59 36.9 C 76 18 146/79 H 96 02/23/24 02:35 02/23/24 00:00 69 02/23/24 00:00 02/22/24 23:54 36.3 C L 83 18 144/71 H 93 02/22/24 23:45 84 19 129/69 94 02/22/24 23:30 79 20 129/69 93 02/22/24 23:15 81 19 132/62 19 L O2 Del Method 02/23/24 10:54 Room Air 02/23/24 08:09 Room Air 02/23/24 07:23 Room Air 02/23/24 07:19 Room Air 02/23/24 03:59 Room Air 02/23/24 02:35 Room Air 02/23/24 00:00 02/23/24 00:00 Room Air 02/22/24 23:54 Room Air 02/22/24 23:45 Room Air 02/22/24 23:30 Room Air 02/22/24 23:15 Room Air PG Care Time/CCT Total # of Minutes Spent Total Time Spent with Patient: Total time spent is greater than 50% in coordination of care (as documented) at patient's floor/unit and/or counseling patient: Coding Diagnoses Empyema, right J86.9 Lactic acidosis E87.20 Sepsis A41.9 COPD exacerbation J44.1
[2024-02-23] MEDS: VANCOMYCIN HCL 1,250 MG in SODIUM CHLORIDE 0.9% 250 ML IV SCH (11:40)
--- NOTE | 2024-02-23 12:19 | Hospitalist Progress Note ---
Date of Service February 23, 2024 Assessment & Plan (1) Empyema lung: Plan: -CT Chest: in EPIC: . New large loculated right pleural collections with air and fluid concerning for empyemas. Two claims customer service representative collections are measured above.2. New ill-defined right upper lobe pulmonary consolidations, likely infection. The previously seen pulmonary consolidations in the right middle lobe have decreased, however there is increased right middle lobe volume loss.3. Several mediastinal lymph nodes have mildly increased in size, may be reactive. Attention on the follow-up chest CT suggested. -pulmonary placed chest tube in ED, awaiting transfer to [facility] for VATS with cardiothoracic surgery -no air leak notable on my exam today -culture data shows gram positive cocci and gram negatives as well Plan: -f/u culture results -appreciate pulmonary recs -monitor respiratory status -continue broad spectrum abx -maintenance fluids ordered, NPO for intervention (2) Sepsis: Plan: -noted on admission, 2/2 lung empyema Plan: -continue maintenance fluids -continue broad spectrum abx -monitor fluid status (3) Lactic acidosis: Plan: -improved (4) Hyperglycemia: Plan: -glycemic control with lantus and SSI (5) CKD stage 3 due to type 2 diabetes mellitus: Plan: -trend creatinine (6) TBI (traumatic brain injury): 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, patient has partial blindness and significant light sensitivity (7) Tobacco use: Plan: -likely contributer to need for VATS Plan Feeding/fluids: NPO Analgesia: oxycodone Sedation: na Thromboprophylaxis: SCDs Head up position: na Ulcer prophylaxis: na Glycemic control: insulin protocol Spontaneous breathing trial: na Bowel care: miralax Indwelling catheter removal: none Deescalation of antibiotics: broad spectrum until cultures arrive I spent a total of 55 minutes coordinating, documenting, and providing care for this patient excluding time spent in the performance of separately billed services. Admission and Anticipated Discharge Date Admission Date: February 22, 2024 Subjective 63-year-old male past medical history of lower back pain who presents for shortness of breath and atypical chest imaging. Noted outpatient to have significant pleural effusions in his right lung and was told to come to the ED. Chest tube was placed by pulmonary and patient is awaiting transfer to [facility] for further workup and VATS. Patient is in pain today. He states that he would like to transfer soon as possible. His shortness of breath feels improved and he is pleased with the amount of fluid that is coming out of chest tube. Review of Systems Review of Systems: CONSTITUTIONAL: fatigue, pain EYES: Patient denies any visual symptoms. EARS, NOSE, AND THROAT: No difficulties with hearing. No symptoms of rhinitis or sore throat. CARDIOVASCULAR: Patient denies chest pains, palpitations, orthopnea and paroxysmal nocturnal dyspnea. RESPIRATORY: No dyspnea on exertion, no wheezing or cough. GI: No nausea, vomiting, diarrhea, constipation, abdominal pain, hematochezia or melena. : No urinary hesitancy or dribbling. No nocturia or urinary frequency. No abnormal urethral discharge. MUSCULOSKELETAL: No myalgias or arthralgias. NEUROLOGIC: No chronic headaches, no seizures. Patient denies numbness, tingling or weakness. PSYCHIATRIC: Patient denies problems with mood disturbance. No problems with anxiety. ENDOCRINE: No excessive urination or excessive thirst. DERMATOLOGIC: Patient denies any rashes or skin changes. Physical Exam Physical Exam: Gen: A&O 3 NAD HEENT: NCAT, EOMI, not icteric. External ears normal. No rhinorrhea. Moist mucous membranes. Neck: Supple, full range of motion, no observable masses, No meningeal sign. Lungs: No Respiratory distress. Noted right sided chest tube CV: RRR, no edema. Abdomen: Soft, nondistended, No rebound tenderness. MSK: No joint swelling, no redness. Skin: No rashes, petechiae, lesions. Normal color per patient. Neuro: Normal Gait, Grossly intact. Psych: Appropriate for situation. Results & Data Results & Data Vital Signs (Past 12 Hours) Vital Signs Temp Pulse Resp BP Pulse Ox O2 Del Method 02/23/24 10:54 36.2 C L 80 18 115/70 90 Room Air 02/23/24 08:09 36.2 C L 90 18 102/58 L 93 Room Air 02/23/24 07:23 Room Air 02/23/24 07:19 88 16 95 Room Air 02/23/24 03:59 36.9 C 76 18 146/79 H 96 Room Air 02/23/24 02:35 Room Air Laboratory Results Laboratory Results WBC 38.30 K/ul (4.8-10.8) H* 02/23/24 07:42 RBC 3.89 M/uL (4.70-6.10) L 02/23/24 07:42 Hgb 10.3 g/dl (14.0-18.0) L 02/23/24 07:42 Hct 31.8 % (42.0-52.0) L 02/23/24 07:42 MCV 81.7 fL (80.0-100.0) 02/23/24 07:42 MCH 26.5 pg (25.0-34.0) 02/23/24 07:42 MCHC 32.4 g/dL (32.0-36.0) 02/23/24 07:42 RDW Std Deviation 55.7 fL (36.4-46.3) H 02/23/24 07:42 RDW Coeff of Whitney 18.6 % (11.5-14.5) H 02/23/24 07:42 Plt Count 560 K/uL (130-400) H 02/23/24 07:42 MPV 8.4 fL (9.4-12.4) L 02/23/24 07:42 Immature Gran % (Auto) 1.3 % 02/23/24 07:42 Neut % (Auto) 93.9 % 02/23/24 07:42 Lymph % (Auto) 2.8 % 02/23/24 07:42 Traill % (Auto) 1.6 % 02/23/24 07:42 Eos % (Auto) 0.1 % 02/23/24 07:42 Baso % (Auto) 0.3 % 02/23/24 07:42 Neut # (Auto) 35.94 K/uL (1.40-6.50) H 02/23/24 07:42 Lymph # (Auto) 1.07 K/uL (1.20-3.40) L 02/23/24 07:42 Traill # (Auto) 0.63 K/uL (0.11-0.59) H 02/23/24 07:42 Eos # (Auto) 0.05 K/uL (0.00-0.50) 02/23/24 07:42 Baso # (Auto) 0.13 K/uL (0.00-0.20) 02/23/24 07:42 Immature Gran # (Auto) 0.48 K/uL (0.01-0.20) H 02/23/24 07:42 Polychromasia 1+ 02/23/24 07:42 Echinocytes 1+ 02/23/24 07:42 PT 11.9 Seconds (9.0-12.0) 02/22/24 16:36 INR 1.1 (0.9-1.1) 02/22/24 16:36 APTT 27 Seconds (21-31) 02/22/24 16:36 PTT Ratio 1.0 02/22/24 16:36 Sodium 137 mmol/L (136-145) D 02/23/24 07:42 Potassium 3.9 mmol/L (3.5-5.1) 02/23/24 07:42 Chloride 102 mmol/L (98-107) 02/23/24 07:42 Carbon Dioxide 29 mmol/L (21-32) 02/23/24 07:42 Anion Gap 6 (3-11) 02/23/24 07:42 BUN 25 mg/dl (6-23) H 02/23/24 07:42 Creatinine 1.15 mg/dl (0.6-1.4) 02/23/24 07:42 Est Cr Clr Drug Dosing 56.7 ml/min 02/23/24 07:42 eGFR 71.51 02/23/24 07:42 BUN/Creatinine Ratio 21.7 (10-20) H 02/23/24 07:42 Glucose 169 mg/dl (70-99(Fasting)) H 02/23/24 07:42 POC Glucose 170 mg/dl (70-99) H 02/23/24 12:18 Estimat Average Glucose 197 mg/dl 02/23/24 05:28 Hemoglobin A1c 8.5 % (4.5-5.6) H 02/23/24 05:28 Lactate 1.3 mmol/L (0.4-2.0) 02/23/24 10:04 Calcium 9.6 mg/dl (8.6-10.3) 02/23/24 07:42 Magnesium 1.8 mg/dl (1.7-2.4) 02/22/24 16:36 Total Bilirubin 0.4 mg/dl (0.2-1.0) 02/22/24 16:36 Direct Bilirubin 0.2 mg/dl (0-0.2) 02/22/24 16:36 AST 43 U/L (13-39) H 02/22/24 16:36 ALT 61 U/L (7-52) H 02/22/24 16:36 Alkaline Phosphatase 359 U/L (34-104) H 02/22/24 16:36 Troponin I High Sens 16.5 pg/ml (0-20) 02/22/24 16:36 Total Protein 8.0 gm/dl (6.0-8.3) 02/22/24 16:36 Albumin 2.8 gm/dl (3.4-5.0) L 02/22/24 16:36 Procalcitonin 1.89 ng/ml (0-0.5) H 02/22/24 16:36 Fluid Comment 02/22/24 20:00 Pleural Fluid Source Right Lung 02/22/24 20:00 Pleural Color Brown 02/22/24 20:00 Pleural Appearance Turbid 02/22/24 20:00 Pleural WBC (Auto) 466232 /uL 02/22/24 20:00 Pleural RBC (Auto) 801607 /uL 02/22/24 20:00 Pleural Glucose 34 mg/dl 02/22/24 22:45 Nasal Screen MRSA (PCR) Negative (Negative) 02/22/24 Unknown Impressions Chest X-Ray 02/23/24 06:58 EXAM: XR chest 1V portable CLINICAL HISTORY: EMPYEMA LDS. TECHNIQUE: An X-ray image of the chest was obtained in AP projection. COMPARISON: Prior X-ray study dated 02/22/2024. FINDINGS: Pulmonary Parenchyma: Inserted right chest tube is seen. Mild regression in right middle lung zone opacity with surrounding diffuse ground glass opacity and alveolar densities seen with obscured right costophrenic angle. Right paratracheal radio-opacity is seen as well. Left upper lobe calcified granuloma. No evidence of left consolidation, collapse, or focal opacities. No evidence of left pleural effusion or pleural thickening. Heart and Mediastinum: Heart size and shape are normal. No mediastinal widening or masses. No hilar or mediastinal lymphadenopathy. Bony Thorax: Bony thorax appears intact without fractures or deformities. Soft Tissues: Soft tissues overlying the chest wall are unremarkable. IMPRESSION: 1. Inserted right chest tube is seen (new). 2. Mild regression in right middle lung zone opacity with surrounding diffuse ground glass opacities seen as well as mild right pleural effusion. 3. Right paratracheal radio-opacity is seen as well (stable). 4. Left upper lobe calcified granuloma (stable). Electronically signed by Memo Alegre 02-23-2024 08:20 AM (2) Sepsis Sepsis type: sepsis due to unspecified organism Sepsis acute organ dysfunction status: with acute organ dysfunction Severe sepsis acute organ dysfunction type: acute respiratory failure Acute respiratory failure type: with hypoxia Severe sepsis shock status: without septic shock Qualified Code(s): A41.9 - Sepsis, unspecified organism; R65.20 - Severe sepsis without septic shock; J96.01 - Acute respiratory failure with hypoxia (6) TBI (traumatic brain injury) Encounter type: sequela Loss of consciousness presence/duration: unknown LOC status Qualified Code(s): S06.9XAS - Unspecified intracranial injury with loss of consciousness status unknown, sequela
--- NOTE | 2024-02-23 13:40 | Pharmacy Report ---
Pharmacy Glycemic Short Note 2 - Date of Service February 23, 2024 - Glycemic Short BSG Results (Last 24 hours): 02/22/24 02/22/24 02/22/24 16:36 18:24 20:13 Glucose 514 H* POC Glucose 434 H* 349 H* 02/22/24 02/23/24 02/23/24 23:14 00:50 05:59 Glucose POC Glucose 254 H 221 H 181 H 02/23/24 02/23/24 07:42 12:18 Glucose 169 H POC Glucose 170 H OUTPATIENT ANTIDIABETIC REGIMEN: * n/a * A1c = 8.5% 02/23/24 ASSESSMENT: * Patient was admitted for back pain, SOB, hyperglycemia and abnormal CXR. Patient found to have empyema and is awaiting x-jeny to [facility] * A1c testing consistent w/ dx DM. No out-pt meds for DM currently * BSG's have trended favorably since admission following receipt of both basal and correctional insulin * Continue scaled basal insulin dosing utilizing "mild" to "moderate" stress level and weight. * Will continue "moderate" stress Novolog PLAN FOR INPATIENT GLYCEMIC CONTROL: * Hold outpatient oral diabetes medications * Basal insulin * Lantus 0-10 units SQ BID; 0 units if BSG less than 120, 5 units if BSG 120- 180, 10 units if above 180 * Bolus insulin * NovoLog per scale ACHS or Q6hrs while NPO * Goal Range: Low 110 mg/dL - 150 High mg/dL * Correction Factor: 40 mg/dL/unit * Nutritional / Prandial insulin per carb ratio of 1 unit per 15 grams CHO consumed
--- NOTE | 2024-02-23 14:04 | Pharmacy Report ---
Pharmacy PK ABX Note - Date of Service February 23, 2024 - Assessment and Plan Assessment 63 year old M receiving VANCOMYCIN + MEROPENEM for treatment of SEPSIS secondary to EMPYEMA. Patient was admitted 02/21 for back pain, SOB, abnormal CXR. Chest tube was placed for empyema. Pertinent microbiologic data includes: Negative MRSA Nasal Swab, pleural fluid culture pending (gram stain shows GPC), sputum cx pending (gram stain shows GPC, GNB, and GNC), procal 1.89 Day # 2 of antimicrobial therapy. Plan Vancomycin * Loading dose: 1500 mg IV x 1 yesterday evening (02/21) * Maintenance dose: 1250 mg IV every 24 hours started today at noon-time, kelly avelar given most recent data [facility] indicates a dose of 1500mg IV Q 24 hrs may achieve our goal AUC/CAITLIN ratio more quickly. Will increase to this new maint dose, with next dose due 02/23 @0600 * Regimen is predicted to achieve target AUC/CAITLIN of 400-600 mg/L.hr * Random level ordered for: 02/24/24 Pharmacy will continue to follow and will adjust dose/frequency as necessary. Thank you. Pharmacy has transitioned to AUC monitoring for vancomycin. AUC/CAITLIN is the preferred PK/PD target and is associated with decreased risk of nephrotoxicity compared to traditional trough targets.
--- NOTE | 2024-02-23 14:37 | Communication Note ---
Current Inpatient Medications Acetaminophen (Acetaminophen 325 Mg Tab) 650 mg PO Q4H PRN PRN Reason: Pain or Fever Stop: 03/24/24 00:03 Albuterol (Albut/Ipratrop 3mg/0.5mg Neb 3 Ml Vial) 3 ml NEB QIDR PRN; Protocol PRN Reason: Shortness Of Breath Or Wheezing Stop: 03/24/24 00:20 Ascorbic Acid (Ascorbic Acid 500 Mg Tab) 500 mg PO QAM [facility] Stop: 03/24/24 08:59 Last Admin: 02/23/24 09:12 Dose: 500 mg Baclofen (Baclofen 20 Mg Tab) 20 mg PO HS PRN PRN Reason: Muscle Spasm Stop: 03/24/24 00:03 Budesonide (Budesonide 0.25 Mg/2 Ml Vial (Pulmicort)) 0.25 mg NEB QDR [facility] Stop: 03/24/24 07:59 Last Admin: 02/23/24 07:18 Dose: 0.25 mg Dextrose (Dextrose 50% 50 Ml Syringe) 25 - 50 ml IV UD PRN; Protocol PRN Reason: Hypoglycemia Protocol Stop: 03/24/24 00:03 Famotidine (Famotidine 20 Mg Tab) 20 mg PO DAILY PRN PRN Reason: Heartburn Stop: 03/24/24 00:03 Formoterol Fumarate (Formoterol 20 Mcg/2 Ml Vial) 20 mcg NEB BIDR [facility] Stop: 03/24/24 06:59 Last Admin: 02/23/24 07:18 Dose: 20 mcg Glucagon (Glucagon For Inj 1 Mg Vial) 1 mg SQ UD PRN; Protocol PRN Reason: Hypoglycemia Protocol Stop: 03/24/24 00:03 Glucose (Glucose 40% Gel 15 Gm Tube) 15 - 30 gm PO UD PRN; Protocol PRN Reason: Hypoglycemia Protocol Stop: 03/24/24 00:03 Glucose (Glucose 10 Tab/Tube) 4 - 8 tab PO UD PRN; Protocol PRN Reason: Hypoglycemia Protocol Stop: 03/24/24 00:03 Meropenem 500 mg/ Syringe 10 mls @ 2 mls/min IV Q8H [facility]; Protocol Stop: 02/28/24 03:59 Last Admin: 02/23/24 11:40 Dose: 2 mls/min Vancomycin HCl 1,250 mg/ (Sodium Chloride) 275 mls @ 200 mls/hr IV Q24H [facility] Stop: 02/23/24 16:00 Last Infusion: 02/23/24 13:03 Dose: Infused Sodium Chloride (Nss) 1,000 mls @ 80 mls/hr IV .[id number] [facility] Stop: 02/24/24 12:44 Last Admin: 02/23/24 12:30 Dose: 80 mls/hr Vancomycin HCl 1,500 mg/ (Sodium Chloride) 530 mls @ 200 mls/hr IV Q24H [facility] Stop: 03/06/24 08:38 Insulin Aspart (Insulin Aspart Per Unit Charge) 0 units SC Q6 SID Stop: 03/24/24 00:03 Last Admin: 02/23/24 12:28 Dose: 1 units Insulin Glargine (Lantus Per Unit Charge) 0 - 10 units SQ HS [facility] Stop: 03/24/24 00:03 Last Admin: 02/23/24 00:59 Dose: 10 units Lactobacillus Acidophilus (Advanced Probiotic 625 Mg Capsule) 1,250 mg PO DAILY [facility] Stop: 03/24/24 08:59 Last Admin: 02/23/24 09:12 Dose: 1,250 mg Lidocaine (Lidocaine 5% 1 Patch) 1 patch TD HS [facility] Stop: 03/23/24 20:59 Last Admin: 02/22/24 21:16 Dose: 1 patch Melatonin (Melatonin 3 Mg Tab) 6 mg PO HS PRN PRN Reason: Sleep Stop: 03/24/24 00:03 Miscellaneous (Remove Lidoderm Patch) 1 each N/A DAILY@0900 [facility] Stop: 03/24/24 08:59 Last Admin: 02/23/24 09:12 Dose: 1 each Miscellaneous (Carbohydrates For Hypoglycemia ) 15 - 30 gm PO UD PRN PRN Reason: Hypoglycemia Protocol Stop: 03/24/24 00:03 Miscellaneous Information (Vancomycin Consult Active) 1 each N/A UD PRN PRN Reason: Consult Stop: 03/23/24 18:23 Miscellaneous Information (Pharmacy Glycemic Mgmt Consult) 1 each N/A UD PRN; Protocol PRN Reason: Consult Stop: 03/24/24 00:03 Multivitamins/Minerals (Cerovite Adv Formula Tab) 1 tab PO QAM [facility] Stop: 03/24/24 08:59 Last Admin: 02/23/24 09:12 Dose: 1 tab Ondansetron HCl (Ondansetron Inj 2 Mg/Ml 2 Ml Vial) 4 mg IV Q6H PRN PRN Reason: Nausea Stop: 03/24/24 00:03 Oxycodone HCl (Oxycodone Hcl Ir 5 Mg Tab (Immediate Release)) 5 mg PO Q4H PRN PRN Reason: Severe Pain (Scale 7, 8, 9,10) Stop: 03/07/24 20:31 Last Admin: 02/23/24 04:35 Dose: 5 mg Polyethylene Glycol (Polyethylene (Miralax) 17 Gm Pack) 17 gm PO DAILY PRN PRN Reason: Constipation Stop: 03/24/24 00:03 Topiramate (Topiramate 50 Mg Tab) 50 mg PO QAM [facility] Stop: 03/24/24 08:59 Last Admin: 02/23/24 09:12 Dose: 50 mg Topiramate (Topiramate 50 Mg Tab) 75 mg PO QPM [facility] Stop: 03/24/24 20:59 Date of Service: February 23, 2024
[2024-02-23 14:59] LABS: Hematocrit (blood only) 31.7 % (42.0-52.0); Hemoglobin 10.3 g/dl (14.0-18.0); Mean Corpuscular Hemoglobin 26.4 pg (25.0-34.0); Mean Corpuscular Hgb Conc 32.5 g/dL (32.0-36.0); Mean Corpuscular Volume 81.3 fL (80.0-100.0); Mean Platelet Volume 8.5 fL (9.4-12.4); Platelet Count 576 K/uL (130-400); RDW Coefficient of Variation 18.6 % (11.5-14.5); RDW Standard Deviation 55.1 fL (36.4-46.3); White Blood Count 40.46 K/ul (4.8-10.8)
[2024-02-23 15:07] LABS: Basophils # (auto) 0.13 K/uL (0.00-0.20); Basophils % (auto) 0.3 %; Dohle Bodies 1+; Echinocytes 1+; Eosinophils # (auto) 0.07 K/uL (0.00-0.50); Eosinophils % (auto) 0.2 %; Immature Granulocytes # (auto) 0.54 K/uL (0.01-0.20); Immature Granulocytes % (auto) 1.3 %; Monocytes # (auto) 0.66 K/uL (0.11-0.59); Monocytes % (auto) 1.6 %; Neutrophils # (auto) 37.86 K/uL (1.40-6.50); Neutrophils % (auto) 93.6 %; Polychromasia 1+; Toxic Vacuolation 1+
--- NOTE | 2024-02-23 15:19 | Pulmonology Progress Note ---
Date of Service February 23, 2024 Assessment & Plan (1) Empyema, right: (2) Lactic acidosis: (3) Sepsis: Acute respiratory failure type: with hypoxia Sepsis acute organ dysfunction status: with acute organ dysfunction Sepsis type: sepsis due to unspecified organism Severe sepsis acute organ dysfunction type: acute respiratory failure Severe sepsis shock status: without septic shock Qualified Code(s): A41.9 - Sepsis, unspecified organism; R65.20 - Severe sepsis without septic shock; J96.01 - Acute respiratory failure with hypoxia (4) COPD exacerbation: Plan Pleural fluid suggestive of empyema. Patient will be transferred to [facility] for thoracic surgery evaluation. Mist 2 protocol not initiated at this time due to concern for potential bleeding given the complexity of the pleural space at this time. Continue vancomycin and meropenem. White count unfortunately worsening. Will need definitive source control likely with VATS decortication. Discussed with Dr. Olvera of [facility] thoracic surgery. Admission and Anticipated Discharge Date Admission Date: February 22, 2024 Subjective Patient seen examined. Endorses less dyspnea than yesterday. Remains with cough and sputum production. Mild pleurisy. No fevers or chills. Review of Systems Review of Systems: All systems reviewed & are unremarkable except as noted in HPI & below Physical Exam Physical Exam: Constitutional: Patient appears to be of their stated age. Patient is in no apparent distress. Thin appearing male. Eyes: Pupils are equal round and reactive to light. Conjunctivae are normal. Anicteric sclera. Ears nose, mouth and throat: Mallampati class 1. Normal posterior oropharynx. Uvula is midline. Extremely poor dentition with multiple loose teeth. Neck: Trachea is midline. Visual inspection is normal. Respiratory: Right pleural rub with diminishment on the right and crackles. Diffuse wheezing. Right chest tube in place and draining brown fluid. Cardiovascular: Regular rate and rhythm. No murmurs. No edema. Gastrointestinal: Normal bowel sounds, soft, nontender and nondistended. No hepatosplenomegaly noted. Musculoskeletal: No cyanosis. Patient is able to move all extremities. Strength is 5 out of 5 in the upper and lower extremities. Skin: No rashes, warm dry and intact. Neurologic: No obvious focal neurological deficits seen. Psychiatric: Alert and oriented x3 with a euthymic affect. Results & Data Results & Data Vital Signs (Past 12 Hours) Vital Signs Temp Pulse Pulse Resp BP BP Pulse Ox 02/23/24 14:45 36.2 C L 80 18 115/70 129/69 90 02/23/24 13:00 91 H 02/23/24 10:54 36.2 C L 80 18 115/70 90 02/23/24 08:09 36.2 C L 90 18 102/58 L 93 02/23/24 07:23 02/23/24 07:19 88 16 95 02/23/24 07:02 93 H 02/23/24 03:59 36.9 C 76 18 146/79 H 96 O2 Del Method 02/23/24 14:45 02/23/24 13:00 02/23/24 10:54 Room Air 02/23/24 08:09 Room Air 02/23/24 07:23 Room Air 02/23/24 07:19 Room Air 02/23/24 07:02 02/23/24 03:59 Room Air PG Care Time/CCT Total # of Minutes Spent Total Time Spent with Patient: Total time spent is greater than 50% in coordination of care (as documented) at patient's floor/unit and/or counseling patient: Coding Level of Care Code 44577 SUB INP/OBS CARE 2/35MIN Diagnoses Empyema, right J86.9 Lactic acidosis E87.20 Sepsis with acute hypoxic respiratory failure without septic shock, due to unspecified organism A41.9; R65.20; J96.01 Acute respiratory failure type: with hypoxia Sepsis acute organ dysfunction status: with acute organ dysfunction Sepsis type: sepsis due to unspecified organism Severe sepsis acute organ dysfunction type: acute respiratory failure Severe sepsis shock status: without septic shock COPD exacerbation J44.1
--- NOTE | 2024-02-23 16:21 | Discharge Summary ---
Discharge Summary Date of Service February 23, 2024 Principal Dx & Hospital Course #1 = Principal Diagnosis (1) Empyema lung: -CT Chest: in EPIC: . New large loculated right pleural collections with air and fluid concerning for empyemas. 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 New ill-defined right upper lobe pulmonary consolidations, likely infection. The previously seen pulmonary consolidations in the right middle lobe have decreased, however there is increased right middle lobe volume loss.3. Several mediastinal lymph nodes have mildly increased in size, may be reactive. Attention on the follow-up chest CT suggested. -pulmonary placed chest tube in ED, awaiting transfer to [facility] for VATS with cardiothoracic surgery -no air leak notable on my exam today -culture data shows gram positive cocci and gram negatives as well Plan: -f/u culture results -appreciate pulmonary recs -monitor respiratory status -continue broad spectrum abx -maintenance fluids ordered, NPO for intervention (2) Sepsis: -noted on admission, 2/2 lung empyema Plan: -continue maintenance fluids -continue broad spectrum abx -monitor fluid status (3) Lactic acidosis: -improved (4) Hyperglycemia: -glycemic control with lantus and SSI (5) CKD stage 3 due to type 2 diabetes mellitus: -trend creatinine (6) 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 Past medical history includes CKD stage III, history of traumatic brain injury. Current tobacco user. In the ED, imaging from outpatient was noted to show a large empyema, which is why he came to the hospital for it to be drained. Pulmonary was consulted and placed a chest tube on right side. Pulmonary discussed with cardiothoracic surgeon and recommended VATS and transferred to [facility]. Medication Changes From Visit -abx Admission HPI Per Admitting Provider This is a 63-year-old male who has significant past medical history of rheumatoid arthritis, history of TBI, CKD stage III with baseline creatinine 1.5, hyperlipidemia, tobacco use disorder, medical marijuana use and depression with anxiety who presents to ED at the referral of PCP due to abnormal CT chest. He presented to OP clinic today for a routine lung cancer screening. He reports hx of PNA back in November. Ever since then he has been intermittently coughing up blood. He reports chest pain with movement/breathing and SOB with exertion. He has been having a productive cough for months. He denies f/c/s, night sweats, lightheaded, dizziness, n/v/d, abd pain. Of significance patient underwent a CT chest for lung cancer screening which revealed new large loculated right pleural collections with air and fluid concerning for empyema was. 2 home furnishings sales representative collections are seen. New ill-defined right upper lobe pulmonary consolidations which is likely infectious in etiology. Severe mediastinal lymph nodes have mildly increased in size and may be reactive. Due to abnormality patient was referred to ED. In ED pt did not require supplemental oxygen. Admission labs are currently pending. He was started on IV rocephin and Flagyl. Pulmonology was consulted and they recommend transfer to tertiary center for consideration for VATS. Discharge Exam Gen: A&O 3 NAD HEENT: NCAT, EOMI, not icteric. External ears normal. No rhinorrhea. Moist mucous membranes. Neck: Supple, full range of motion, no observable masses, No meningeal sign. Lungs: No Respiratory distress. Noted right sided chest tube CV: RRR, no edema. Abdomen: Soft, nondistended, No rebound tenderness. MSK: No joint swelling, no redness. Skin: No rashes, petechiae, lesions. Normal color per patient. Neuro: Normal Gait, Grossly intact. Psych: Appropriate for situation. Updated Medication List Medication Instructions Recorded Confirmed Type ascorbic acid (vitamin C) 500 mg 500 mg PO QAM 06/18/20 02/22/24 History tablet (Vitamin C) atorvastatin 20 mg tablet 20 mg PO QPM 06/18/20 02/22/24 History baclofen 20 mg tablet 20 mg PO HS PRN Muscle Spasm 06/18/20 02/22/24 History hdcvdxxisqwk-jpomrhpl-bmadab tablet 1 tab PO QAM 06/18/20 02/22/24 History topiramate 50 mg tablet 50 mg PO UD 02/22/24 02/22/24 History Hospital Stay Data Consultations 02/22/24 16:39 ED Decision to Admit Stat 02/22/24 17:23 Consult Pulmonology Routine Diagnostic Imagining Performed 02/22/24 18:31 US point of care ultrasound Urgent Pending Results Patient Have Any Pending Studies at Discharge: No Total Time Total Time Spent Total Time Spent (In Minutes): I spent a total of 45 minutes coordinating, documenting, and providing care for this patient excluding time spent in the performance of separately billed services.
--- NOTE | 2024-02-23 18:28 | Electrocardiogram Report ---
Test Reason : Blood Pressure : */* mmHG Vent. Rate : 90 BPM Atrial Rate : 90 BPM P-R Int : 148 ms QRS Dur : 124 ms QT Int : 390 ms P-R-T Axes : 57 91 35 degrees QTcB Int : 477 ms Sinus rhythm with occasional Premature ventricular complexes Possible Left atrial enlargement Right bundle branch block Abnormal ECG When compared with ECG of 07-Oct-2011 15:16, Right bundle branch block is now Present Confirmed by Omer Samson ([id number]) on 02/23/2024 6:28:04 PM Referred By: Wero Vega Confirmed By: Omer Samson
[2024-02-23] MEDS ORDERED: TOPIRAMATE 50 MG TAB PO SCH (21:00)
[2024-02-24] MEDS ORDERED: VANCOMYCIN HCL 1,500 MG in SODIUM CHLORIDE 0.9% 500 ML IV SCH (06:00)
== END 2024-02-23 15:46 | disposition short-term general hospital (02) | DRG 871 ==
LOC: ED 14:21 → 2E 17:22 → SUATTDRO 17:22 → 2E 02-23 02:35